=== PATIENT | male | born 2000 | race Caucasian/White ===

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

== ENCOUNTER 2023-02-23 21:31 | Emergency (ER) | payer OTHER, SELFPAY ==
[~2023-02-23] VITALS: Ht 180.3 cm; Wt 80.2 kg
[~2023-02-23 21:31] MED LIST: LIDO5DIS41 TOP; METH-1164 PO
[2023-02-23] MEDS ORDERED: BOOSTRIX VACCINE (TETANUS/DIPHTH/ACEL. PERTUSSIS) 0.5ML SYR IM ONE (22:15)
[2023-02-23] MEDS ORDERED: LIDOCAINE W/EPINEPHRINE 1% 20ML VIAL SC ONE (22:15)
[2023-02-24] MEDS ORDERED: BACITRACIN OINTMENT 30GM TUBE TOP STA (00:05)
[2023-02-24] MEDS ORDERED: CEPHALEXIN 500 MG CAP PO ONE (00:05)
[2023-02-24] MEDS ORDERED: BACI500O8 TOP (00:08)
[2023-02-24] MEDS ORDERED: CEPH500C PO (00:08)
[2023-02-24 00:18] VITALS: BP 135/62; TEMP 97.7; O2SAT 98
== END 2023-02-24 00:50 | disposition home or self-care (01) ==
LOC: M ED 21:31
DX: S01.81XA Laceration without foreign body of other part of head, initial encounter (principal); W31.1XXA Contact with metalworking machines, initial encounter; F17.200 Nicotine dependence, unspecified, uncomplicated; F10.10 Alcohol abuse, uncomplicated; Y92.009 Unspecified place in unspecified non-institutional (private) residence as the place of occurrence of the external cause; Y93.89 Activity, other specified; Y99.9 Unspecified external cause status; Z79.891 Long term (current) use of opiate analgesic; Z79.2 Long term (current) use of antibiotics; Z79.899 Other long term (current) drug therapy

== ENCOUNTER 2023-10-03 16:05 | Emergency (ER) | payer OTHER ==
[~2023-10-03] VITALS: Ht 177.8 cm; Wt 80.9 kg
[~2023-10-03 16:05] MED LIST changes: +BACI500O8 TOP; +CEPH500C PO
[2023-10-03] MEDS: MORPHINE 4 MG/ML 1ML VIAL IV ONE (18:16)
[2023-10-03] MEDS: ceFAZolin SOD 1 GM in D5W MINI-BAG PLUS 50 ML IV ONE (18:30)
[2023-10-03 18:39] LABS: HEMATOCRIT 43.3 % (42.0-52.0); MEAN CORPUSCULAR HEMOGLOBIN 29.8 pg (27.0-33.0); MEAN CORPUSCULAR HGB CONC 34.6 g/dl (32.0-36.5); MEAN CORPUSCULAR VOLUME 85.9 fl (80.0-96.0); PLATELET COUNT, AUTOMATED 244 10^3/uL (150-450); RED BLOOD COUNT 5.04 10^6/uL (4.30-6.10); WHITE BLOOD COUNT 9.1 10^3/uL (4.0-10.0)
[2023-10-03] MEDS ORDERED: CEPH500C PO (19:17)
[2023-10-03 19:35] VITALS: BP 136/76; TEMP 97.6; O2SAT 98
== END 2023-10-03 19:36 | disposition home or self-care (01) ==
LOC: M ED 16:05
DX: S91.042A Puncture wound with foreign body, left ankle, initial encounter (principal); F17.290 Nicotine dependence, other tobacco product, uncomplicated; F10.10 Alcohol abuse, uncomplicated; Z79.2 Long term (current) use of antibiotics; Z79.899 Other long term (current) drug therapy
CPT/HCPCS: 73610; 80047; 85027; 96365; 96374; 99284; J0690

== ENCOUNTER → 2023-10-04 | Outpatient (CLI) | payer OTHER | LOC: M SOG 13:40 | PROVIDERS: ATTEND Physician Assistant | DX: M25.572 Pain in left ankle and joints of left foot (principal) ==